=== PATIENT | female | born 1955 | race Native Hawaiian/Other Pacific Islander ===

== ENCOUNTER 2021-03-27 14:46 | Emergency (ER) | payer OTHER ==
[~2021-03-27] VITALS: Ht 154.9 cm; Wt 59.0 kg
[2021-03-27 14:48] VITALS: TEMP 98
[2021-03-27 15:35] LABS: PLATELET COUNT 338 K/uL (152-353)
[2021-03-27 15:41] LABS: POTASSIUM 3.6 mmol/L (3.6-5.2)
[2021-03-27 16:10] VITALS: BP 121/91
== END 2021-03-27 18:44 | disposition home or self-care (01) ==
LOC: ED 14:46
PROVIDERS: Family Medicine
DX: F41.8 Other specified anxiety disorders (principal); F32.89 Other specified depressive episodes; Z53.29 Procedure and treatment not carried out because of patient's decision for other reasons
CPT/HCPCS: 80053; 85027; 96372; 99283; J2060